=== PATIENT | male | born 2000 | race Caucasian/White ===

== ENCOUNTER 2021-06-18 16:54 | Emergency (ER) | payer OTHER, BC ==
--- NOTE | 2021-06-18 18:32 | XRAY Report ---
PROCEDURE: Forearm RT INDICATIONS: Trauma TECHNIQUE: 2 views of the forearm were acquired. COMPARISON: None. FINDINGS: Bones: No fractures or dislocations. No suspicious bony lesions. Soft tissues: No suspicious soft tissue calcifications or masses. IMPRESSION: 1. No fracture or dislocation. Reviewed by: Puneet Daniels MD on 06/18/2021 6:30 PM PST Approved by: Puneet Daniels MD on 06/18/2021 6:30 PM [facility] Station ID: [id number]
--- NOTE | 2021-06-18 19:41 | ED Physician Documentation ---
History of Present Illness - Stated complaint Stated Complaint: RT ARM INJURY - Chief complaint Chief Complaint: Trauma Ext - Additonal information Additional information: 20-year-old male presents emergency department for evaluation of acute right arm injury. He was skiing 5 days ago and fell onto the arm on compact snow. Over the last week he has found increased pain on the medial ulnar side of the forearm with movement. No deformity. Patient is right-hand dominant. No history of previous injury. Review of Systems Constitutional: reports: Reviewed and negative Nose: reports: Reviewed and negative Throat: reports: Reviewed and negative Cardiac: reports: Reviewed and negative Respiratory: reports: Reviewed and negative GI: reports: Reviewed and negative : reports: Reviewed and negative Musculoskeletal: reports: Extremity pain (Right forearm) PD PAST MEDICAL HISTORY - Allergies Allergies/Adverse Reactions: Allergies Allergy/AdvReac Type Severity Reaction Status Date / Time No Known Drug Allergies Allergy Verified 06/18/21 17:36 PD ED PE EXPANDED - General General: Alert, No acute distress - Extremities Extremities: Right forearm (Mild tenderness medial right forearm with deep palpation. Normal pronation and supination of the forearm. Soft compartments. 2+ radial and ulnar pulse. No pain at elbow or wrist.) Results - Vitals Vitals: Vital Signs - 24 hr 06/18/21 17:33 Temperature 36.7 C Heart Rate 65 Respiratory 18 Rate Blood Pressure 129/77 O2 Saturation 99 Oxygen O2 Source Room air - Rads (name of study) right forearm xr Radiology: Final report received (no fx or dislocation) PD MEDICAL DECISION MAKING - ED course Complexity details: reviewed results, d/w patient ED course: 20-year-old male here with 5 days of right forearm pain after skiing injury. No deformity. Mild tenderness with deep palpation only. Patient has not taken anything for pain at home. X-rays without acute findings. Very low suspicion for compartment syndrome given that both arms are soft and of equal diameter. Patient is advised to take ibuprofen for discomfort. Emergent return precautions discussed. Departure - Departure Disposition: 01 Home, Self Care Clinical Impression: Contusion of right forearm Qualifiers: Encounter type: initial encounter Qualified Code(s): S50.11XA - Contusion of right forearm, initial encounter Condition: Stable Record reviewed to determine appropriate education?: Yes Instructions: ED Contusion Upper Extr Ch Comments: Mohsen you were seen in the emergency department today for pain in your right forearm. You fell on it 1 week ago. The x-rays do not reveal an obviously broken bone. I suspect that you have deeper muscle or bone contusion. This should improve over the next week or so. I recommend that you take ibuprofen 600 mg with food 2-3 times a day for discomfort. If despite this your symptoms are not improving, you have severe arm swelling, numbness or tingling in your fingers then please return immediately to the ER for second evaluation.
[2021-06-18 19:59] VITALS: BP 138/89
== END 2021-06-18 19:50 | disposition home or self-care (01) ==
LOC: ED 16:54
DX: S50.11XA Contusion of right forearm, initial encounter (principal); W19.XXXA Unspecified fall, initial encounter; Y93.23 Activity, snow (alpine) (downhill) skiing, snowboarding, sledding, tobogganing and snow tubing
CPT/HCPCS: 1040M; 73090; 99282; 99283